=== PATIENT | male | born 1985 | race Caucasian/White ===

== ENCOUNTER 2016-10-23 21:20 | Day surgery (SDC) | payer OTHER ==
[~2016-10-23] VITALS: Ht 175.3 cm; Wt 124.3 kg
[~2016-10-23 21:20] MED LIST: ALBU8.5H2 IH; AZTH250C PO; HYDR-3720 PO; PENI250T4 PO
--- OUTSIDE RECORDS SUMMARY | 2016-10-23 21:27 | XMS REPORT | Continuity of Care Document ---
Author Author [facility] Organization [facility] Address Unknown Phone Unavailable Allergies Active Description Code Type Severity Reaction Onset Reported/Identified Relationship to Patient Clinical Status Yes No Known Drug Allergies [id number] Drug Allergy Unknown N/ A 01/17/2013 Medications Problems Date Dx Coded Attending Type Code Diagnosis Diagnosed By 01/17/2013 MICKEY LOOMIS MD Ot 719.41 JOINT PAIN-SHLDER 01/17/2013 MICKEY LOOMIS MD Ot 959.2 SHLDR/UPPER ARM INJ NOS 01/17/2013 MICKEY LOOMIS MD Ot E000.8 OTHER EXTERNAL CAUSE STATUS 01/17/2013 MICKEY LOOMIS MD Ot E849.4 ACCID IN RECREATION AREA 01/17/2013 MICKEY LOOMIS MD Ot E928.9 ACCIDENT NOS 03/13/2013 JOHN HUMPHREY DO Ot 522.5 PERIAPICAL ABSCESS 03/13/2013 JOHN HUMPHREY DO Ot 525.9 DENTAL DISORDER NOS 07/07/2013 JASON INTERIANO, WHIT Pacheco Ot 490 BRONCHITIS NOS 07/07/2013 JASON INTERIANO, WHIT Pacheco Ot 786.2 COUGH Procedures Results Encounters ACCT No. Visit Date/Time Discharge Status Pt. Type Provider Facility Loc./Unit Complaint [id number] 07/07/2013 09:55:00 2012 11:40:00 DIS Emergency WHIT GOMEZ MD [facility] ER CONGESTION COUGHING [id number] 03/13/2013 16:32:00 2012 18:13:00 DIS Emergency JOHN HUMPHREY DO [facility] ER R CHEEK PAIN [id number] 01/17/2013 19:57:00 2012 22:43:00 DIS Emergency MICKEY LOOMIS MD [facility] ER R SHOULDER POPING OUT OF PLACE [id number] 10/23/2016 21:23:00 ACT Emergency EBONIE INTERIANO, MICKEY Butcher [facility] AB PAIN
--- NOTE | 2016-10-23 23:07 | ED Abdominal Pain ---
General Chief Complaint: Abdominal/GI Problems Stated Complaint: AB PAIN Nursing Triage Note: onset of right sided abdominal pain beginning at 1700 tonight. Sepsis Screen: No Definite Risk Source of Information: Patient Exam Limitations: No Limitations History of Present Illness Time Seen By Provider: 23:07 Initial Comments 31-year-old male patient presents to the emergency department with complaints of right-sided abdominal pain beginning at 1700 tonight. Patient reports previous history of symptoms over the last month. Worse with eating especially fatty foods. Does report nausea and vomiting when pain begins. Patient reports eating a meatball sub approx. 30 min prior to symptoms. Timing/Duration: Constant (constant pain since 1700 tonight.), Other (1700 tonight.) Severity/Quality: Aching, Cramping, Sharp Location: Other (right-sided abdominal pain) Radiation: No Radiation Activities at Onset: Other (30 minutes after eating a meatball sub) Modifying Factors: Worsens With Eating, Worsens With Movement, Worsens With Palpation Allergies and Home Medications Allergies Coded Allergies: No Known Drug Allergies (Unverified , 01/17/13) Home Medications Albuterol 8.5 Gm Hfa.aer.ad #1 2 PUFF IH Q4H PRN PRN WHEEZING 2 PUFFS Prescribed by: WHIT GARZON on 07/07/13 1137 Azithromycin 250 Mg Tablet 5Days 1 TAB PO DAILY Take 500 mg day #1, then 250 mg daily on days #2-5 Prescribed by: WHIT GARZON on 07/07/13 1137 Review of Systems Constitutional: No chills, No fever, No malaise Respiratory: No Symptoms Reported Cardiovascular: No Symptoms Reported Gastrointestinal: See HPIDenies Abdomen Distended, Abdominal PainDenies Blood Streaked Stools, Denies Constipated, Denies Diarrhea, NauseaDenies Rectal Bleeding, Vomiting Genitourinary: Denies Burning, Denies Discharge, Denies Frequency, Denies Flank Pain, Denies Hematuria, Denies Pain Musculoskeletal: No back pain Skin: no symptoms reported Psychiatric/Neurological: No Symptoms Reported All Other Systems Reviewed Negative Unless Noted: Yes (Negative excepted noted.) Past Ekdallh-Gozxxi-Auhnii Hx Patient Social History Recent Foreign Travel: No Contact w/Someone Who Travel: No Recent Infectious Disease Expo: No Surgeries HX Surgeries: No Respiratory Hx Respiratory Disorders: Yes Respiratory Disorders: Pneumonia Cardiovascular Hx Cardiac Disorders: No Neurological Hx Neurological Disorders: No Genitourinary Hx Genitourinary Disorders: No Gastrointestinal Hx Gastrointestinal Disorders: No Musculoskeletal Hx Musculoskeletal Disorders: No Endocrine Hx Endocrine Disorders: No HEENT HX ENT Disorders: No Cancer Hx Cancer: No Psychosocial Hx Psychiatric Problems: No Integumentary HX Skin/Integumentary Disorder: No Blood Transfusions Hx Blood Disorders: No Reviewed Nursing Assessment Reviewed/Agree w Nursing PMH: Yes Family Medical History Significant Family History: COPD Physical Exam Vital Signs VS - Last 72 Hours, by Label 10/23/16 22:22 Temp 97.2 Pulse 69 Resp 24 B/P 124/70 Capillary Refill : Less Than 3 Seconds General Appearance: WD/WN no apparent distress HEENT: PERRL/EOMI pharynx normal Respiratory: lungs clear normal breath sounds no respiratory distress Cardiovascular: regular rate, rhythm no murmur Gastrointestinal: normal bowel sounds soft no organomegalyNo distended, guarding (right upper quadrant)No rebound, tenderness (right mid abdomen and right upper quadrant. Positive May sign.) Extremities: normal capillary refill Back: normal inspection no CVA tenderness Neurologic/Psychiatric: alert oriented x 3 other (anxious) Skin: normal color warm/dry Progress/Results/Core Measures Results/Orders Lab Results Laboratory Tests Test 10/23/16 23:30 Range/Units Alanine Aminotransferase (ALT/SGPT) 30 0-55 U/L Albumin 4.2 3.2-4.5 G/DL Alkaline Phosphatase 82 40-136 U/L Anion Gap 11 5-14 MMOL/L Aspartate Amino Transf (AST/SGOT) 24 5-34 U/L BUN/Creatinine Ratio 9 Band Neutrophils 4 % Basophils # (Auto) 0.0 0.0-0.1 10^3/uL Basophils % (Manual) 0 % Basophils (%) (Auto) 0 0-10 % Blood Morphology Comment NORMAL Blood Urea Nitrogen 9 7-18 MG/DL Calcium Level 9.0 8.5-10.1 MG/DL Carbon Dioxide Level 24 21-32 MMOL/L Chloride Level 103 98-107 MMOL/L Creatinine 1.01 0.60-1.30 MG/DL Eosinophils # (Auto) 0.0 0.0-0.3 10^3/uL Eosinophils % (Manual) 0 % Eosinophils (%) (Auto) 0 0-10 % Estimat Glomerular Filtration Rate > 60 Glucose Level 122 H 70-105 MG/DL Hematocrit 44 40-54 % Hemoglobin 15.1 13.3-17.7 G/DL Lipase 24 8-78 U/L Lymphocytes # (Auto) 2.1 1.0-4.0 X 10^3 Lymphocytes % (Manual) 11 % Lymphocytes (%) (Auto) 9 L 12-44 % Mean Corpuscular Hemoglobin 29 25-34 PG Mean Corpuscular Hemoglobin Concent 35 32-36 G/DL Mean Corpuscular Volume 82 80-99 FL Mean Platelet Volume 10.7 H 7.4-10.4 FL Monocytes # (Auto) 0.8 0.0-1.0 X 10^3 Monocytes % (Manual) 2 % Monocytes (%) (Auto) 4 0-12 % Neutrophils # (Auto) 20.1 H 1.8-7.8 X 10^3 Neutrophils % (Manual) 77 % Neutrophils (%) (Auto) 87 H 42-75 % Platelet Count 336 130-400 10^3/uL Potassium Level 3.6 3.6-5.0 MMOL/L Reactive Lymphocytes 6 % Red Blood Count 5.29 4.35-5.85 10^6/uL Red Cell Distribution Width 12.2 10.0-14.5 % Sodium Level 138 135-145 MMOL/L Total Bilirubin 0.4 0.1-1.0 MG/DL Total Protein 7.3 6.4-8.2 G/DL White Blood Count 23.0 H 4.3-11.0 10^3/uL My Orders Orders-JASWINDER ARRIAGA Saline Lock/Iv-Start (10/23/16 23:12) Cbc With Automated Diff (10/23/16 23:12) Comprehensive Metabolic Panel (10/23/16 23:12) Lipase (10/23/16 23:12) Ua Culture If Indicated (10/23/16 23:12) Fentanyl Injection (Sublimaze Injection (10/23/16 23:12) Ondansetron Injection (Zofran Injectio (10/23/16 23:15) Ns Iv 1000 Ml (Sodium Chloride 0.9%) (10/23/16 23:12) Ct Abdomen/Pelvis W (10/23/16 23:12) Manual Differential (10/23/16 23:30) Iohexol Injection (Omnipaque 350 Mg/Ml 1 (10/24/16 00:00) Ns (Ivpb) (Sodium Chloride 0.9% Ivpb Bag (10/24/16 00:00) Morphine Injection (Morphine Injection (10/24/16 00:05) Hydromorphone Injection (Dilaudid Inject (10/24/16 01:04) Hydromorphone Injection (Dilaudid Inject (10/24/16 01:05) Medications Given in ED Current Medications Medications Dose Ordered Sig/Silvestre Route Start Time Stop Time Status Last Admin Dose Admin Iohexol 100 ml ONCE ONCE IV 10/24/16 00:00 10/24/16 00:01 DC 10/23/16 23:56 100 ML Ondansetron HCl 4 mg 4 mg ONCE ONCE IVP 10/23/16 23:15 10/23/16 23:16 DC 10/23/16 23:33 4 MG Sodium Chloride 100 ml ONCE ONCE IV 10/24/16 00:00 10/24/16 00:01 DC 10/23/16 23:56 80 ML Sodium Chloride 1,000 ml @ 0 mls/hr Q0M ONCE IV 10/23/16 23:12 10/23/16 23:13 DC 10/23/16 23:37 0 MLS/HR Vital Signs/I&O Vital Sign - Last 12Hours 10/23/16 22:22 Temp 97.2 Pulse 69 Resp 24 B/P 124/70 Blood Pressure Mean: 88 Diagnostic Imaging Diagonstic Imaging: CT Plain Films/CT/US/NM/MRI: abdomen, pelvis Comments Cholelithiasis without CT evidence of acute cholecystitis. Appendix is unremarkable. Reviewed: Other (statrad report reviewed by me) Departure Communication Time/Spoke to Admitting Phy: 00:[address] Roberson excepts patient to his surgery service for IV antibiotics, IV fluids , pain control, and cholecystectomy. Progress Notes Laboratory and diagnostic findings discussed with the patient. Patient was given 100 g of fentanyl, 10 mg of morphine with minimal improvement in abdominal pain. Patient continues to rate pain as a 8-9/10. Plan for admission discussed with the patient for pain control, IV fluids, and lap cholecystectomy in a.m. by Dr. Roberson. Patient voices understanding and agrees with the treatment plan. Patient given 1 mg Dilaudid IV in the emergency department. Patient case discussed with Dr. Haynes, he agrees with the plan of care. Impression Impression: Primary Impression: Intractable abdominal pain Additional Impressions: Leukocytosis Qualified Code: D72.829 - Elevated white blood cell count, unspecified Cholelithiasis Qualified Code: K80.20 - Calculus of gallbladder without cholecystitis without obstruction Disposition: ADMITTED INPATIENT Condition: Stable Decision to Admit Reason: Admit from ER (General) Decision to Admit/Date: Oct 24, 2016 Time/Decision to Admit Time: 00:40 Departure-Patient Inst. Referrals: NO,LOCAL PHYSICIAN (PCP/Family) Primary Care Physician JASWINDER ARRIAGA Oct 23, 2016 23:07
[2016-10-23] MEDS ORDERED: NS IV 1000 ML 1,000 ML IV ONE (23:12)
[2016-10-23] MEDS ORDERED: fentaNYL INJECTION 100 MCG/2 ML AMP IVP STA (23:12)
[2016-10-23] MEDS ORDERED: ONDANSETRON 4 MG/2 ML (SDV) Z0FRAN IVP ONE (23:15)
[2016-10-23 23:47] LABS: BASOPHILS % (AUTO) 0 % (0-10); EOSINOPHILS % (AUTO) 0 % (0-10); LYMPHOCYTES # (AUTO) 2.1 X 10^3 (1.0-4.0); LYMPHOCYTES % (AUTO) 9 % (12-44); MEAN CORPUSCULAR HEMOGLOBIN 29 PG (25-34); MEAN CORPUSCULAR HGB CONC 35 G/DL (32-36); MEAN CORPUSCULAR VOLUME 82 FL (80-99); MEAN PLATELET VOLUME 10.7 FL (7.4-10.4); MONOCYTES # (AUTO) 0.8 X 10^3 (0.0-1.0); MONOCYTES % (AUTO) 4 % (0-12); NEUTROPHILS # (AUTO) 20.1 X 10^3 (1.8-7.8); NEUTROPHILS % (AUTO) 87 % (42-75); PLATELET COUNT 336 10^3/uL (130-400); RED BLOOD COUNT 5.29 10^6/uL (4.35-5.85); RED CELL DISTRIBUTION WIDTH 12.2 % (10.0-14.5)
[2016-10-24] MEDS ORDERED: IOHEXOL 350 MG/ML 100 ML (OMNIPAQUE 350) VIAL IV ONE
[2016-10-24] MEDS ORDERED: NS 100 ML (IVPB) BAG IV ONE
[2016-10-24] MEDS ORDERED: morphine INJ 10 MG/ML 1ML (SYR OR VIAL) IVP STA (00:05)
[2016-10-24 00:06] LABS: BAND NEUTROPHILS 4 %; BASOPHILS % (MANUAL) 0 %; EOSINOPHILS % (MANUAL) 0 %; LYMPHOCYTES % (MANUAL) 11 %; NEUTROPHILS % (MANUAL) 77 %; REACTIVE LYMPHOCYTES 6 %
[2016-10-24 00:08] LABS: ALANINE AMINOTRANSFERASE 30 U/L (0-55); ALBUMIN 4.2 G/DL (3.2-4.5); ANION GAP 11 MMOL/L (5-14); ASPARTATE AMINO TRANSFERASE 24 U/L (5-34); BILIRUBIN,TOTAL 0.4 MG/DL (0.1-1.0); BLOOD UREA NITROGEN 9 MG/DL (7-18); BUN/CREATININE RATIO 9; CARBON DIOXIDE 24 MMOL/L (21-32); CHLORIDE 103 MMOL/L (98-107); CREATININE SERUM 1.01 MG/DL (0.60-1.30); GFR ESTIMATED > 60; GLUCOSE 122 MG/DL (70-105); LIPASE 24 U/L (8-78); POTASSIUM 3.6 MMOL/L (3.6-5.0); SODIUM 138 MMOL/L (135-145); TOTAL PROTEIN 7.3 G/DL (6.4-8.2)
[2016-10-24] MEDS ORDERED: HYDROmorphone (DILAUDID) 2 MG/ML VIAL IVP STA (01:04)
[2016-10-24] MEDS ORDERED: HYDROmorphone (DILAUDID) 2 MG/ML VIAL ONE (01:05)
[2016-10-24] MEDS ORDERED: NS IV 1000 ML 1,000 ML ONE (02:25)
[2016-10-24] MEDS ORDERED: morphine INJ 4 MG/ML 1 ML (VIAL/SYRINGE) ONE ×2 (02:47→15:01)
[2016-10-24] MEDS: morphine INJ 4 MG/ML 1 ML (VIAL/SYRINGE) IV PRN ×3 (02:51→08:22)
[2016-10-24 04:00] VITALS: BP 132/68
[2016-10-24] MEDS ORDERED: CATHETER FLUSH 10 ML SYR IV PRN (04:30)
[2016-10-24] MEDS ORDERED: ONDANSETRON 4 MG/2 ML (SDV) Z0FRAN IV PRN ×2 (04:30→14:45)
[2016-10-24] MEDS ORDERED: fentaNYL INJECTION 100 MCG/2 ML AMP IV PRN (04:30)
[2016-10-24] MEDS ORDERED: PROMETHAZINE INJ 25 MG/ML (PHENERGAN) AMP IV PRN (04:30)
[2016-10-24] MEDS: NS IV 1000 ML 1,000 ML IV SCH ×2 (04:48→11:29)
[2016-10-24] MEDS: CIPROFLOXACIN 400 MG/D5W 200 ML (PRE-MIX) IV SCH ×2 (04:48→15:59)
[2016-10-24 05:52] LABS: BASOPHILS % (AUTO) 0 % (0-10); EOSINOPHILS % (AUTO) 0 % (0-10); LYMPHOCYTES # (AUTO) 2.4 X 10^3 (1.0-4.0); LYMPHOCYTES % (AUTO) 15 % (12-44); MEAN CORPUSCULAR HEMOGLOBIN 29 PG (25-34); MEAN CORPUSCULAR HGB CONC 35 G/DL (32-36); MEAN CORPUSCULAR VOLUME 83 FL (80-99); MEAN PLATELET VOLUME 10.8 FL (7.4-10.4); MONOCYTES # (AUTO) 0.8 X 10^3 (0.0-1.0); MONOCYTES % (AUTO) 5 % (0-12); NEUTROPHILS # (AUTO) 12.4 X 10^3 (1.8-7.8); NEUTROPHILS % (AUTO) 80 % (42-75); PLATELET COUNT 275 10^3/uL (130-400); RED BLOOD COUNT 4.99 10^6/uL (4.35-5.85); RED CELL DISTRIBUTION WIDTH 12.3 % (10.0-14.5); WHITE BLOOD COUNT 15.6 10^3/uL (4.3-11.0)
[2016-10-24] MEDS: metroNIDAZOLE 500 MG/100 ML IVPB (PRE-MIX) IV SCH ×2 (06:00→13:28)
[2016-10-24] MEDS: CATHETER FLUSH 10 ML SYR IV SCH ×2 (06:00→15:51)
[2016-10-24 06:17] LABS: ALANINE AMINOTRANSFERASE 26 U/L (0-55); ALBUMIN 3.7 G/DL (3.2-4.5); ANION GAP 10 MMOL/L (5-14); ASPARTATE AMINO TRANSFERASE 21 U/L (5-34); BILIRUBIN,TOTAL 0.5 MG/DL (0.1-1.0); BLOOD UREA NITROGEN 7 MG/DL (7-18); BUN/CREATININE RATIO 8; CALCIUM 8.3 MG/DL (8.5-10.1); CARBON DIOXIDE 23 MMOL/L (21-32); CHLORIDE 106 MMOL/L (98-107); CREATININE SERUM 0.83 MG/DL (0.60-1.30); GFR ESTIMATED > 60; GLUCOSE 112 MG/DL (70-105); SODIUM 139 MMOL/L (135-145); TOTAL PROTEIN 6.4 G/DL (6.4-8.2)
--- NOTE | 2016-10-24 06:54 | Diagnostic Imaging Report ---
PROCEDURE: CT abdomen and pelvis with contrast. TECHNIQUE: Multiple contiguous axial images were obtained through the abdomen and pelvis after administration of intravenous contrast. INDICATION: Right upper quadrant pain, postprandial worsening in severity recently. Multiple stones within the gallbladder lumen present. The gallbladder is nondistended and showed no obvious wall thickening or pericholecystic edema. The liver, bile ducts, spleen, adrenals, pancreas all normal. There is no hydronephrosis. No bowel obstruction. There is no appendicitis or diverticulitis. No focal inflammatory process. No ascites, abscess, hematoma or other fluid collection. IMPRESSION: Cholelithiasis, otherwise normal. Agree with preliminary. Dictated by: Dictated on workstation # [id number]
[2016-10-24] MEDS ORDERED: FLU TRIvalent (5 YOA+) 2016-17 (AFLURIA) 0.5 ML IM ONE (07:00)
[2016-10-24 07:09] LABS: AMYLASE 22 U/L (25-125); LIPASE 12 U/L (8-78)
[2016-10-24 08:00] VITALS: BP_SYST 125; BP_SYST 97; BP_DIAS 67; BP_DIAS 81
--- NOTE | 2016-10-24 08:23 | Progress Note-Pre Operative ---
Pre-Operative Progress Note H&P Reviewed The H&P was reviewed, patient examined and no changes noted. Date H&P Reviewed: Oct 24, 2016 Time H&P Reviewed: 08:23 Pre-Operative Diagnosis: gallstones with acute cholecystitis CLEO FOX MD Oct 24, 2016 8:23 am
--- NOTE | 2016-10-24 08:23 | History & Physicial ---
History of Present Illness History of Present Illness Reason for visit/HPI 3 months history of right upper quadrant pain radiating around the costal margin to the back, with acute exacerbation over the last [address] has confirmed gallstones with early acute cholecystitis. Date of Admission Oct 24, 2016 at 1:13 am I consulted on this patient on 10/24/16 08:20 Attending Physician Cleo Fox MD Admitting Physician No,Local Physician Consult Allergies and Home Medications Allergies Coded Allergies: No Known Drug Allergies (Unverified , 01/17/13) Home Medications Albuterol 8.5 Gm Hfa.aer.ad #1 2 PUFF IH Q4H PRN PRN WHEEZING 2 PUFFS Prescribed by: WHIT GARZON on 07/07/13 1137 Azithromycin 250 Mg Tablet 5Days 1 TAB PO DAILY Take 500 mg day #1, then 250 mg daily on days #2-5 Prescribed by: WHIT GARZON on 07/07/13 1137 Past Cjgdujo-Becfvh-Ewfhdd Hx Patient Social History Marrital Status: Employed/Student: employed Alcohol Use: Denies Use Recreational Drug Use: No Smoking Status: Current Everyday Smoker Type Used: Cigarettes 2nd Hand Smoke Exposure: No Physical Abuse Screen: No Sexual Abuse: No Recent Foreign Travel: No Contact w/other who traveled: No Recent Hopitalizations: No Recent Infectious Disease Expo: No Immunizations Up To Date Tetanus Booster (TDap): Unknown Seasonal Allergies Seasonal Allergies: No Surgeries HX Surgeries: No Respiratory Hx Respiratory Disorders: Yes Cardiovascular Hx Cardiovascular Disorders: No Neurological Hx Neurological Disorders: No Genitourinary Hx Genitourinary Disorders: No Gastrointestinal Hx Gastrointestinal Disorders: No Musculoskeletal Hx Musculoskeletal Disorders: No Endocrine Hx Endocrine Disorders: No HEENT HX ENT Disorders: No Cancer Hx Cancer: No Psychosocial Hx Psychiatric Problems: No Integumentary HX Skin/Integumentary Disorder: No Blood Transfusions Hx Blood Disorders: No Adverse Reaction to a Blood Tr: No Reviewed Nursing Assessment Reviewed/Agree w Nursing PMH: Yes Family Medical History Significant Family History: COPD Family Hx: FH: congestive heart failure 19 FATHER Constitutional: fever EENTM: no symptoms reported Respiratory: cough Cardiovascular: no symptoms reported Gastrointestinal: RUQ abdominal pain (RUQ) Genitourinary: no symptoms reported Musculoskeletal: no symptoms reported Skin: no symptoms reported Psychiatric/Neurological: No Symptoms Reported Physical Exam Vital Signs Vital Sign - Last 12Hours 10/23/16 10/24/16 10/24/16 22:22 02:05 02:12 Temp 97.2 Pulse 69 Resp 24 B/P 124/70 Pulse Ox 98 O2 Delivery Room Air Capillary Refill : Less Than 3 Seconds General Appearance: Mild Distress HEENT: PERRL/EOMI Neck: Normal Inspection Respiratory: Lungs Clear Cardiovascular: Regular Rate, Rhythm Gastrointestinal: Soft Tenderness Rectal: Deferred Back: Normal Inspection Extremity: Normal Capillary Refill Normal Inspection Neurologic/Psychiatric: Alert Oriented x3 Skin: Warm/Dry Comments mild tenderness over the right upper quadrant. Superficial folliculitis of the abdominal wall. No hernia Assessment/Plan Assessment and Plan gentleman with gallstones and early acute cholecystitis. LFTs normal. Offered cholecystectomy using minimally invasive technique and possible cholangiogram. Expected recovery, complications of postoperative bile leak wound infection etc. discussed. Incentive spirometry will be used preoperatively and continued after surgery. Encouraged to stop smoking Admission Diagnosis gallstones with acute cholecystitis Clinical Quality Measures DVT/VTE Risk/Contraindication: Risk Factor Score Per Nursin RFS Level Per Nursing on Admit: 3=High CLEO FOX MD Oct 24, 2016 8:23 am
[2016-10-24] MEDS ORDERED: metroNIDAZOLE 500MG/100ML IVPB 100 ML IV ONE (08:30)
[2016-10-24] MEDS ORDERED: ceFAZolin 2 GM/50 ML NS 50 ML IV ONE (08:30)
[2016-10-24] MEDS ORDERED: FAMOTIDINE 20MG/2ML IV (PEPCID) IV SCH (09:00)
[2016-10-24] MEDS ORDERED: FAMOTIDINE 20MG/2ML IV (PEPCID) IV ONE (10:30)
[2016-10-24] MEDS ORDERED: RT-ALBUTEROL SULF 2.5 MG/3 ML PRE-MIX VIAL INH ONE (10:30)
[2016-10-24] MEDS ORDERED: BUP/EPI 0.25% 1:200,000 (MARCAINE) 30 ML VIAL ONE (10:57)
[2016-10-24] MEDS ORDERED: ROCURONIUM 50 MG/5 ML (ZEMURON) VIAL IV ONE (11:29)
[2016-10-24] MEDS ORDERED: proPOfol 200 MG/20 ML (DIPRIVAN) VIAL IV ONE (11:29)
[2016-10-24] MEDS ORDERED: MIDAZOLAM 2 MG/2 ML (VERSED) VIAL ONE (11:29)
[2016-10-24] MEDS ORDERED: fentaNYL INJECTION 250 MCG/5 ML AMP ONE (11:29)
[2016-10-24 11:45] VITALS: BP 105/65
[2016-10-24] MEDS: LACTATED RINGERS 1,000 ML IV PRN ×2 (12:10→13:35)
[2016-10-24] MEDS ORDERED: ceFAZolin 1,000 MG (ANCEF) VIAL ONE (12:29)
[2016-10-24] MEDS ORDERED: SEVOFLURANE (ULTANE) 15 ML INHAL SOLN ONE (13:50)
[2016-10-24] MEDS ORDERED: LACTATED RINGERS 2,000 ML IV ONE (13:50)
[2016-10-24] MEDS ORDERED: ONDANSETRON 4 MG/2 ML (SDV) Z0FRAN ONE (13:50)
--- NOTE | 2016-10-24 14:16 | Progress Note-Post Operative ---
Post-Operative Progess Note Pre-Operative Diagnosis gallstones with acute cholecystitis Post-Operative Diagnosis same Post-Op Procedure Note Date of Procedure: Oct 24, 2016 Name of Procedure: rrobotic-assisted cholecystectomy Anesthesia Type Gen. Estimated blood loss (mL): minimal Specimen(s) collected gallbladder CLEO FOX MD Oct 24, 2016 2:16 pm
[2016-10-24] MEDS ORDERED: HYDR-3812 PO (14:17)
--- NOTE | 2016-10-24 14:18 | Discharge Inst-Simple/Standard ---
Discharge Inst-Standard Discharge Medications New, Converted or Re-Newed RX: RX on Chart Patient Instructions/Follow Up Plan of Care/Instructions/FU: incentive spirometry. Dressings off in 48 hours. Follow-up in 2 weeks Activity as Tolerated: Yes Discharge Diet: No Restrictions CLEO FOX MD Oct 24, 2016 2:18 pm
[2016-10-24] MEDS ORDERED: KETOROLAC 30 MG/ML VIAL ONE (14:28)
[2016-10-24] MEDS ORDERED: HYDROmorphone (DILAUDID) 2 MG/ML VIAL IV PRN (14:45)
[2016-10-24] MEDS ORDERED: KETOROLAC 30 MG/ML VIAL IV SCH (14:45)
[2016-10-24] MEDS ORDERED: morphine INJ 10 MG/ML 1ML (SYR OR VIAL) IV PRN (14:45)
[2016-10-24 16:11] VITALS: BP 115/74
--- OUTSIDE RECORDS SUMMARY | 2016-10-25 13:20 | XMS REPORT | Continuity of Care Document ---
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 Name Role Phone NO, LOCAL PHYSICIAN PCP Unavailable Insurance Providers Payer Name Policy Number Subscriber Name Relationship Self Pay Toni Moulton 18 Self / Same As Patient Advance Directives Directive Response Recorded Date/Time Advance Directives No 10/24/16 2:12am Health Care Power of Television Specialist No 10/24/16 2:12am Organ Donor Yes 10/24/16 2:12am Resuscitation Status Full Code 10/24/16 2:12am Chief Complaint and Reason for Visit Chief Complaint INTRACTABLE RUQ PAIN, LEUKOCYTOSIS, CHOLELITHIASIS Reason for Visit Cholelithiasis Intractable abdominal pain Leukocytosis Problems Active Problems Medical Problem Onset Date Status Bronchitis Unknown Acute Cholelithiasis Unknown Acute Intractable abdominal pain Unknown Acute Leukocytosis Unknown Acute Medications Current Home Medications Medication Dose Units Route Directions Days/Qty Instructions Start Date Hydrocodone/Acetaminophen 1 Each 1-2 Tab Oral 4-6HR as needed for Pain 30 10/24/16 Past Home Medications Medication Directions Ordered Status Acetaminophen/Hydrocodone Bitart ([place]) 1 Each Tablet, 0.5 - 1 Each Oral Q 4 - 6 Hrs Prn 03/13/13 Discontinued Penicillin V Potassium 250 Mg Tablet, 500 Mg Oral Four Times Daily 03/13/13 Discontinued Albuterol 8.5 Gm Hfa.aer.ad, 2 Puff Inhalation Every 4HRS as needed for Wheezing 07/07/13 Discontinued Azithromycin 250 Mg Tablet, 1 Tab Oral Daily 07/07/13 Discontinued Social History Social History Problem Response Recorded Date/Time Alcohol Use Denies Use 07/07/2013 10:00am Recreational Drug Use No 07/07/2013 10:00am Recent Foreign Travel No 10/24/2016 2:12am Recent Infectious Disease Exposure No 10/24/2016 2:12am Hospitalization with Isolation Denies 10/24/2016 6:50pm Smoking Status Current Everyday Smoker 10/24/2016 2:12am Type Used Cigarettes 10/24/2016 6:50pm Recent Hopitalizations No 10/24/2016 2:12am Hospitalization with Isolation Denies 10/24/2016 6:50pm Query Response Start Date Stop Date Smoking Status Current Everyday Smoker Hospital Discharge Instructions Patient Instructions Physician Instructions New, Converted or Re-Newed RX: RX on Chart Plan of Care/Instructions/FU: incentive spirometry. Dressings off in 48 hours. Follow-up in 2 weeks Activity as Tolerated: Yes Discharge Diet: No Restrictions Care Plan Patient Instructions:: incentive spirometry. Dressings off in 48 hours. Follow-up in 2 weeks Plan of Care Discharge Date 10/24/16 6:41pm Disposition 01 HOME, SELF-CARE Instructions/Education Provided Cholecystectomy, Laparoscopic Surgery Forms Provided PDI Medical PDI Surgical Prescriptions See Medication Section Referrals CLEO FOX MD (Unspecified) - 11/07/16 Address: [address] [place] [address] Reason(s) for Referral: October AT 2:30 P.M. Additional Instructions/Education SHOWER PAT DRY Care Plan and Goals See Discharge Instructions Section Functional Status Query Response Date Recorded Patient Orientation Person Place Time Situation Eyes Open October 24, 2016 6:50pm Comprehension Ability Understands Concepts October 24, 2016 2:12am Allergies, Adverse Reactions, Alerts No known allergies. Immunizations Name Given Type FLU TRIvalent 5 years - Adult 10/24/16 Administered Vital Signs Acute Vital Signs Vital Response Date/Time Temperature (Fahrenheit) 95.5 degrees F (97.6 - 99.5) 10/24/2016 4:11pm Temperature (Calculated Celsius) 35.27577 degrees C (36.4 - 37.5) 10/24/2016 4:11pm Temperature Source Tympanic 10/24/2016 4:11pm Pulse Rate (adult) 58 bpm (60 - 90) 10/24/2016 4:11pm Respiratory Rate 20 bpm (12 - 24) 10/24/2016 4:11pm O2 Sat by Pulse Oximetry 98 % (88 - 100) 10/24/2016 4:11pm Blood Pressure 115/74 mm Hg 10/24/2016 4:11pm Blood Pressure Mean 88 mm Hg 10/24/2016 4:11pm Pain Numeric Pain Scale 0-No Pain 10/24/2016 4:11pm Height (Feet) 5 feet 10/24/2016 2:12am Height (Inches) 9.00 inches 10/24/2016 2:12am Height (Calculated Centimeters) 175.148764 cm 10/24/2016 2:12am Weight (Pounds) 274 pounds 10/24/2016 2:12am Weight (Ounces) 2.0 oz 10/24/2016 2:12am Weight (Calculated Grams) 168516.01 gm 10/24/2016 2:12am Weight (Calculated Kilograms) 124.605941 kilograms 10/24/2016 2:12am Calculated BMI 40.5 10/24/2016 2:12am Capillary Refill Capillary Refill Less Than 3 Seconds 10/23/2016 10:22pm Results Laboratory Results Test Name Result Units Flags Reference Collection Date/Time Result Date/ Time Comments White Blood Count 15.6 10^3/uL H 4.3-11.0 10/24/2016 5:30am 10/24/2016 5: 53am Red Blood Count 4.99 10^6/uL 4.35-5.85 10/24/2016 5:30am 10/24/2016 5: 53am Hemoglobin 14.5 G/DL 13.3-17.7 10/24/2016 5:30am 10/24/2016 5:53am Hematocrit 41 % 40-54 10/24/2016 5:30am 10/24/2016 5:53am Mean Corpuscular Volume 83 FL 80-99 10/24/2016 5:30am 10/24/2016 5: 53am Mean Corpuscular Hemoglobin 29 PG 25-34 10/24/2016 5:30am 10/24/2016 5: 53am Mean Corpuscular Hemoglobin Concent 35 G/DL 32-36 10/24/2016 5:3001/2017 5:53am Red Cell Distribution Width 12.3 % 10.0-14.5 10/24/2016 5:302016 5:53am Platelet Count 275 10^3/uL 130-400 10/24/2016 5:3010/24/2016 5:53am Mean Platelet Volume 10.8 FL H 7.4-10.4 10/24/2016 5:30am 10/24/2016 5: 53am Neutrophils (%) (Auto) 80 % H 42-75 10/24/2016 5:30am 10/24/2016 5:53am Lymphocytes (%) (Auto) 15 % 12-44 10/24/2016 5:3010/24/2016 5:53am Monocytes (%) (Auto) 5 % 0-12 10/24/2016 5:30am 10/24/2016 5:53am Eosinophils (%) (Auto) 0 % 0-10 10/24/2016 5:30am 10/24/2016 5:53am Basophils (%) (Auto) 0 % 0-10 10/24/2016 5:30am 10/24/2016 5:53am Neutrophils # (Auto) 12.4 X 10^3 H 1.8-7.8 10/24/2016 5:30am 10/24/2016 5 :53am Lymphocytes # (Auto) 2.4 X 10^3 1.0-4.0 10/24/2016 5:3010/24/2016 5: 53am Monocytes # (Auto) 0.8 X 10^3 0.0-1.0 10/24/2016 5:3010/24/2016 5: 53am Eosinophils # (Auto) 0.0 10^3/uL 0.0-0.3 10/24/2016 5:30am 10/24/2016 5 :53am Basophils # (Auto) 0.0 10^3/uL 0.0-0.1 10/24/2016 5:30am 10/24/2016 5: 53am Neutrophils % (Manual) 77 % 10/23/2016 11:30pm 10/24/2016 12:07am Band Neutrophils 4 % 10/23/2016 11:30pm 10/24/2016 12:07am Lymphocytes % (Manual) 11 % 10/23/2016 11:30pm 10/24/2016 12:07am Monocytes % (Manual) 2 % 10/23/2016 11:30pm 10/24/2016 12:07am Eosinophils % (Manual) 0 % 10/23/2016 11:30pm 10/24/2016 12:07am Basophils % (Manual) 0 % 10/23/2016 11:30pm 10/24/2016 12:07am Reactive Lymphocytes 6 % 10/23/2016 11:30pm 10/24/2016 12:07am Blood Morphology Comment NORMAL 10/23/2016 11:30pm 10/24/2016 12: 07am Urine Color YELLOW 10/23/2016 10/24/2016 8:45am Urine Clarity CLEAR 10/23/2016 10/24/2016 8:45am Urine pH 5 5-9 10/23/2016 10/24/2016 8:45am Urine Specific [place] 1.015 * 1.016-1.022 10/23/2016 10/24/2016 8: 45am Urine Protein 1+ * NEGATIVE 10/23/2016 10/24/2016 8:45am Urine Glucose (UA) NEGATIVE NEGATIVE 10/23/2016 10/24/2016 8:45am Urine RBC (Auto) NEGATIVE NEGATIVE 10/23/2016 10/24/2016 8:45am Urine Ketones NEGATIVE NEGATIVE 10/23/2016 10/24/2016 8:45am Urine Nitrite NEGATIVE NEGATIVE 10/23/2016 10/24/2016 8:45am Urine Bilirubin NEGATIVE NEGATIVE 10/23/2016 10/24/2016 8:45am Urine Urobilinogen NORMAL MG/DL NORMAL 10/23/2016 10/24/2016 8:45am Urine Leukocyte Esterase NEGATIVE NEGATIVE 10/23/2016 10/24/2016 8: 45am Urine RBC NONE /HPF 10/23/2016 10/24/2016 8:45am Urine WBC NONE /HPF 10/23/2016 10/24/2016 8:45am Urine Bacteria NEGATIVE /HPF 10/23/2016 10/24/2016 8:45am Urine Squamous Epithelial Cells 5-10 /HPF 10/23/2016 10/24/2016 8: 45am Urine Crystals NONE /LPF 10/23/2016 10/24/2016 8:45am Urine Casts NONE /LPF 10/23/2016 10/24/2016 8:45am Urine Mucus NEGATIVE /LPF 10/23/2016 10/24/2016 8:45am Urine Culture Indicated NO 10/23/2016 10/24/2016 8:45am Sodium Level 139 MMOL/L 135-145 10/24/2016 5:30am 10/24/2016 6:36am Potassium Level 4.0 MMOL/L 3.6-5.0 10/24/2016 5:30am 10/24/2016 6:36am Chloride Level 106 MMOL/L 98-107 10/24/2016 5:30am 10/24/2016 6:36am Carbon Dioxide Level 23 MMOL/L 21-32 10/24/2016 5:30am 10/24/2016 6: 36am Anion Gap 10 MMOL/L 5-14 10/24/2016 5:30am 10/24/2016 6:36am Blood Urea Nitrogen 7 MG/DL 7-18 10/24/2016 5:30am 10/24/2016 6:36am Creatinine 0.83 MG/DL 0.60-1.30 10/24/2016 5:30am 10/24/2016 6:36am BUN/Creatinine Ratio 8 10/24/2016 5:30am 10/24/2016 6:36am Estimat Glomerular Filtration Rate > 60 10/24/2016 5:30am 2016 6:36am GFR INTERPRETIVE DATA UNITS FOR ESTIMATED GFR (eGFR): mL/min/1.73 M2 REFERENCE RANGE FOR ESTIMATED GFR (eGFR) eGFR NORMAL eGFR >60 MODERATELY DECREASED eGFR 30-59 SEVERLY DECREASED eGFR 15-29 KIDNEY FAILURE <15 (OR DIALYSIS) Glucose Level 112 MG/DL H 70-105 10/24/2016 5:30am 10/24/2016 6:36am Calcium Level 8.3 MG/DL L 8.5-10.1 10/24/2016 5:30am 10/24/2016 6:36am Total Bilirubin 0.5 MG/DL 0.1-1.0 10/24/2016 5:30am 10/24/2016 6:36am Alkaline Phosphatase 72 U/L 40-136 10/24/2016 5:30am 10/24/2016 6:36am Aspartate Amino Transf (AST/SGOT) 21 U/L 5-34 10/24/2016 5:30am 2016 6:36am Alanine Aminotransferase (ALT/SGPT) 26 U/L 0-55 10/24/2016 5:30am 10/24 6:36am Total Protein 6.4 G/DL 6.4-8.2 10/24/2016 5:30am 10/24/2016 6:36am Albumin 3.7 G/DL 3.2-4.5 10/24/2016 5:30am 10/24/2016 6:36am Amylase Level 22 U/L L 25-125 10/24/2016 5:30am 10/24/2016 7:10am Lipase 12 U/L 8-78 10/24/2016 5:30am 10/24/2016 7:10am Procedures Procedure Status Date Provider(s) Robot-assisted laparoscopic cholecystectomy Completed 10/24/16 CLEO FOX MD Encounters Encounter Location Arrival/Admit Date Discharge/Depart Date Attending Provider Discharged Inpatient (obs) [facility] 10/24/16 1:13am 6:41pm CLEO FOX MD Recent Diagnosis Cholelithiasis Intractable abdominal pain Leukocytosis
--- OUTSIDE RECORDS SUMMARY | 2016-10-25 13:20 | XMS REPORT | Continuity of Care Document ---
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 [...] - 99.5) 10/24/2016 4:11pm Temperature (Calculated Celsius) 35.02596 degrees C (36.4 - 37.5) 10/24/2016 4:11pm [...] 9.00 inches 10/24/2016 2:12am Height (Calculated Centimeters) 175.157752 cm 10/24/2016 2:12am Weight (Pounds) 274 pounds 10/24/2016 2:12am Weight (Ounces) 2.0 oz 10/24/2016 2:12am Weight (Calculated Grams) 547174.01 gm 10/24/2016 2:12am Weight (Calculated Kilograms) 124.848822 kilograms 10/24/2016 2:12am Calculated BMI 40.5 10/24/2016 [...] 5 5-9 10/23/2016 10/24/2016 8:45am Urine Specific [place] 1.015 * 1.016-1.022 10/23/2016 10/24/2016 8: 45am [...] Date Attending Provider Discharged Inpatient (obs) [facility] 10/24/16 1:13am 6:41pm CLEO FOX MD Recent Diagnosis Cholelithiasis Intractable abdominal pain Leukocytosis
--- NOTE | 2016-10-25 13:25 | OPERATIVE REPORT ---
PROCEDURE PHYSICIAN: CLEO FOX DATE OF PROCEDURE: 10/24/2016 PREOPERATIVE DIAGNOSIS: 1. Gallstones. 2. Cholecystitis. POSTOPERATIVE DIAGNOSIS: 1. Gallstones. 2. Cholecystitis. OPERATION: Robotic assisted cholecystectomy. SURGEON: Da ANESTHESIA: General anesthesia. BLOOD LOSS: Minimal. FLUIDS: 1500 mL crystalloids. TYPE OF WOUND: Type III (contaminate wound). INDICATION FOR THE PROCEDURE: This gentleman presented with gallstones and early acute cholecystitis. He was offered cholecystectomy using minimally invasive technique with robotic assistance, after a brief period of intravenous antibiotics. Informed consent was obtained after reviewing the operative details and complications of wound infection, bile leak and the requirement for postoperative ERCP, should stones be found in the common bile duct. DESCRIPTION OF PROCEDURE: He was placed supine on the operative table and general anesthesia induced using an endotracheal tube. 2 grams of Ancef and 500 mg of Flagyl were administered intravenously as prophylaxis against wound infection. Sequential compression devices were placed around his legs, to minimize the risk of venous thrombosis. Abdomen was prepared and draped in the usual sterile manner. A supraumbilical incision was made and the linea alba incised vertically. A Flannery cannula was placed and carbon dioxide insufflated, to an intra-abdominal pressure of 15 mmHg. Intraabdominal pressure was maintained at 17 mmHg (obesity) using carbon dioxide insufflation. A 12 mm trocar was placed and anatomy visualized using the high definition, 3 dimensional laparoscope associated with da PixelPlay system. Under direct view, I placed an 8 mm cannula over each side of the abdomen, followed by a 5 mm trocar over the left upper quadrant to facilitate retraction of the fundus of the gallbladder. The patient was then turned into steep reverse Trendelenburg position and the robotic system docked in place. Laparoscopic survey confirmed an acutely inflamed gallbladder with severe edema. The fundus was retracted cephalad and infundibulum grasped with Cadiere forceps. Inflamed tissue around the neck of the gallbladder was incised using hook cautery, delineating the cystic duct and artery. Both were divided between locking clips. Cholecystectomy was then completed using the same device. Subhepatic space was irrigated with saline and the gallbladder placed in an Endo Catch bag, to be removed via the supraumbilical trocar site. The fascia over this incision had to be extended laterally to facilitate removal of the large gallbladder. Subsequently, the fascia was closed using number 1 Vicryl, in an interrupted fashion. Subcutaneous tissue over the supraumbilical position was approximated using 3-0 Vicryl. Skin incisions were closed using 4-0 Vicryl, in a subcuticular fashion. 0.25% Marcaine with epinephrine was infiltrated along the incisions, both preemptively and at the conclusion of the operation. He tolerated the procedure well, was extubated in the operating room and taken to the recovery room in a stable condition. [place], sponges, and instruments were correct at the end of the operation. Job ID: [id number] Dictated Date: 10/24/2016 14:16:30 Passenger Attendant Date: 10/25/2016 13:18:19 / una TREJO
== END 2016-10-24 18:41 | disposition home or self-care (01) ==
LOC: EDUNIT# 21:20 → ER 21:23 → SDC 21:24 → 4TH 21:24 → UNDOADMOB 10-24 01:13 → SDC 10-24 18:41 → UNDODISOB 10-24 18:41 → 4TH 10-24 21:24 → SDC 10-24 21:24
PROVIDERS: ATTEND Surgery
DX: K80.12 Calculus of gallbladder with acute and chronic cholecystitis without obstruction (principal); F17.210 Nicotine dependence, cigarettes, uncomplicated
CPT/HCPCS: 36415; 74177; 80053; 81000; 82150; 83690; 85007; 85025; 85027; 87081; 88304; 94640; 94664; 94760; 96374; 96375

== ENCOUNTER 2017-09-16 07:39 | Emergency (ER) | payer SELFPAY ==
[~2017-09-16] VITALS: Ht 182.9 cm; Wt 104.3 kg
[~2017-09-16 07:39] MED LIST changes: +ACHD5005 PO
[2017-09-16] MEDS ORDERED: RT-ALBUTEROL/IPRATROPIUM 3 ML (DUONEB) VIAL INH ONE (08:30)
[2017-09-16] MEDS ORDERED: KETOROLAC 30 MG/ML VIAL IVP ONE (08:30)
--- NOTE | 2017-09-16 08:44 | ED Chest Pain ---
General Chief Complaint: Chest Pain Stated Complaint: FLU, SHARP CP, SOB Nursing Triage Note: pt reports cough/cold flu s/s x 4 days. reports developed worsening cp since yesterday. States CP is worse with inspiration. Nursing Sepsis Screen: No Definite Risk Source: patient Exam Limitations: no limitations History of Present Illness Date Seen by Provider: Sep 16, 2017 Time Seen by Provider: 07:57 Initial Comments Patient presented to the emergency room with primary complaint of chest pain. EKG was obtained by nursing staff at triage. This reports family members have had influenza. He has developed flulike symptoms over the past 2 days including cough, chest pain with cough and breathing, generalized myalgia and fatigue. He took Excedrin, ibuprofen and NyQuil which were not very helpful. He denies any history of cardiopulmonary problems. He has a tightness in his chest. Allergies and Home Medications Allergies Coded Allergies: No Known Drug Allergies (Unverified , 01/17/13) Home Medications Albuterol Sulfate 1 Puff Puff, 1-4 PUFF IH Q4H PRN for SHORTNESS OF BREATH, #1 1 PUFF = 90 MCG Prescribed by: WHIT GARZON on 09/16/17 0921 Hydrocodone Bit/Acetaminophen 1 Each Tablet, 1-2 TAB PO 4-6HR PRN for PAIN, #30 Prescribed by: CLEO FOX on 10/24/16 1417 Oseltamivir Phosphate 75 Mg Cap, 75 MG PO BID, #10 Prescribed by: WHIT GARZON on 09/16/17 0921 Review of Systems Constitutional: see HPI EENTM: No Symptoms Reported Respiratory: See HPI Cardiovascular: No Symptoms Reported Gastrointestinal: No Symptoms Reported Genitourinary: No Symptoms Reported Musculoskeletal: no symptoms reported Skin: no symptoms reported Psychiatric/Neurological: No Symptoms Reported Endocrine: No Symptoms Reported Past Ctcmsky-Ihpxfo-Rmfbmy Hx Patient Social History Alcohol Use: Denies Use Recreational Drug Use: No Smoking Status: Former Smoker Type Used: Cigarettes Former Smoker, Quit: Aug 29, 2016 2nd Hand Smoke Exposure: No Recent Foreign Travel: No Contact w/Someone Who Travel: No Recent Infectious Disease Expo: No Recent Hopitalizations: No Physical Abuse: No Sexual Abuse: No Mistreated: No Fear: No Immunizations Up To Date Tetanus Booster (TDap): Unknown PED Vaccines UTD: No Seasonal Allergies Seasonal Allergies: No Surgeries History of Surgeries: Yes Surgeries: Gallbladder Respiratory History of Respiratory Disorde: No Respiratory Disorders: Pneumonia Cardiovascular History of Cardiac Disorders: No Neurological History of Neurological Disord: No Reproductive System Hx Reproductive Disorders: No Genitourinary History of Genitourinary Disor: No Gastrointestinal History of Gastrointestinal Di: No Musculoskeletal History of Musculoskeletal Dis: No Endocrine History of Endocrine Disorders: No HEENT History of HEENT Disorders: No Cancer History of Cancer: No Psychosocial History of Psychiatric Problem: No Suicide Risk Score: 0 Integumentary History of Skin or Integumenta: No Blood Transfusions History of Blood Disorders: No Adverse Reaction to a Blood Tr: No Family Medical History Significant Family History: Heart Disease, COPD Family Medial History: FH: congestive heart failure 19 FATHER Physical Exam Vital Signs Vital Sign - Last 12Hours 09/16/17 09/16/17 08:06 08:21 Temp 98.0 Pulse 84 Resp 20 B/P (MAP) 107/66 (80) Pulse Ox 95 O2 Delivery Room Air Capillary Refill : Less Than 3 Seconds General Appearance: No Apparent Distress, WD/WN HEENT: PERRL/EOMI, TMs Normal, Normal ENT Inspection, Pharynx Normal Neck: Normal Inspection Respiratory: No Accessory Muscle Use, No Respiratory Distress, Decreased Breath Sounds, Wheezing Cardiovascular: Regular Rate, Rhythm, No Edema, Normal Peripheral Pulses Gastrointestinal: Normal Bowel Sounds, Non Tender, Soft Extremity: Normal Inspection, No Pedal Edema Neurologic/Psychiatric: Alert, Oriented x3, No Motor/Sensory Deficits, Normal Mood/Affect, wildlife photographer II-XII Norm as Tested Skin: Normal Color, Warm/Dry Progress/Results/Core Measures Results/Orders My Orders Orders - WHIT GOMEZ MD Saline Lock/Iv-Start (09/16/17 08:18) Ekg Tracing (09/16/17 08:18) Chest Pa/Lat (2 View) (09/16/17 08:18) Albuterol/Ipra Inhalation Soln (Duoneb I (09/16/17 08:30) Svn Sm Volume Nebulizer Rt-Rfs (09/16/17 08:18) Ketorolac Injection (Toradol Injection) (09/16/17 08:30) Medications Given in ED Vital Signs/I&O Vital Sign - Last 12Hours 1/27/18 09/16/17 09/16/17 09/16/17 08:06 08:21 08:29 09:42 Temp 98.0 Pulse 84 89 Resp 20 20 B/P (MAP) 107/66 (80) Pulse Ox 95 96 97 O2 Delivery Room Air Blood Pressure Mean: 80 Progress Note : Progress Note Chest x-ray and EKG were normal. Patient is presumed to have influenza due to his symptoms and exposures. A DuoNeb treatment helped with the chest tightness. Toradol was given for pain. He is prescribed an inhaler and Tamiflu. ECG Initial ECG Impression Date: Sep 16, 2017 Initial ECG Impression Time: 07:53 Initial ECG Rate: 81 Initial ECG Rhythm: Normal Sinus Initial ECG Intervals: Normal Initial ECG Impression: Normal Comment Normal sinus rhythm with no ST elevation or depression. No abnormal intervals or axis deviation. Diagnostic Imaging Diagonstic Imaging: Xray Plain Films/CT/US/NM/MRI: chest Comments Chest x-ray viewed by me and report reviewed. See report below: NAME: TRAVIS MEAD [facility] REC#: [id number] PT STATUS: REG ER : 1985 PHYSICIAN: WHIT GOMEZ MD ADMIT DATE: 09/16/17/ER Draft Date of Exam:09/16/17 CHEST PA/LAT (2 VIEW) INDICATION: Chest pain COMPARISON: 08/06/2013 FINDINGS: Frontal and lateral views of the chest demonstrate clear lungs bilaterally. The heart is normal. There is no pneumothorax. Osseous structures are normal. IMPRESSION: Negative chest. Dictated on workstation # [id number] Dict: 09/16/17 0859 Trans: 09/16/17 0904 [facility] [id number] Interpreted by: RAFIA VIVAR Departure Impression Impression: Primary Impression: Flu-like symptoms Additional Impressions: Atypical chest pain Acute bronchospasm due to viral infection Disposition: HOME, SELF-CARE Condition: Improved Departure-Patient Inst. Decision time for Depature: 09:05 Referrals: NO,LOCAL PHYSICIAN (PCP/Family) Primary Care Physician Patient Instructions: BRONCHOSPASM-ADULT, Flu Add. Discharge Instructions: Drink plenty of clear liquids. You may take ibuprofen up to 600 mg every 6 hours as needed for pain. Add Tylenol (acetaminophen) up to 1000 mg every 6 hours as needed for additional pain relief. Complete Tamiflu as prescribed. Start it immediately if you choose to take it. Return to care if symptoms worsen. Use your inhaler up to 4 puffs and a four-hour period of time as needed for shortness of breath and chest tightness. All discharge instructions reviewed with patient and/or family. Voiced understanding. Scripts Albuterol Sulfate (PROAIR HFA) 1 Puff Puff 1-4 PUFF IH Q4H Y for SHORTNESS OF BREATH, #1 PUFF 1 PUFF = 90 MCG Prov: WHIT GOMEZ MD 09/16/17 Oseltamivir Phosphate (Tamiflu) 75 Mg Cap 75 MG PO BID, #10 CAP Prov: WHIT GOMEZ MD 09/16/17 Work/School Note: Work Release Form Date Seen in the Emergency Department: Sep 16, 2017 Return to Work: Sep 18, 2017 Restrictions: Return-No Fever (24hrs) WHIT GOMEZ MD Sep 16, 2017 08:44
--- NOTE | 2017-09-16 09:05 | Diagnostic Imaging Report ---
INDICATION: Chest pain COMPARISON: 08/06/2013 FINDINGS: Frontal and lateral views of the chest demonstrate clear lungs bilaterally. The heart is normal. There is no pneumothorax. Osseous structures are normal. IMPRESSION: Negative chest. Dictated by: Dictated on workstation # [id number]
[2017-09-16] MEDS ORDERED: RT-ALBUINH IH (09:21)
[2017-09-16] MEDS ORDERED: OSLT75C PO (09:21)
[2017-09-16 09:42] VITALS: BP 110/63
[2017-09-19] MEDS ORDERED: BENZ-36 PO (11:26)
[2017-09-19] MEDS ORDERED: DOXY100T2 PO (11:26)
== END 2017-09-16 09:42 | disposition home or self-care (01) ==
LOC: EDUNIT# 07:39 → ER 07:41
DX: J11.1 Influenza due to unidentified influenza virus with other respiratory manifestations (principal); R07.89 Other chest pain; J98.01 Acute bronchospasm; B34.9 Viral infection, unspecified; Z87.891 Personal history of nicotine dependence; Z87.01 Personal history of pneumonia (recurrent); Z82.49 Family history of ischemic heart disease and other diseases of the circulatory system
CPT/HCPCS: 71046; 93005; 94640

== ENCOUNTER 2017-09-19 04:23 | Inpatient (IN) | payer SELFPAY ==
[~2017-09-19] VITALS: Ht 172.7 cm; Wt 116.6 kg
[~2017-09-19 04:23] MED LIST changes: +OSLT75C PO; +RT-ALBUINH IH
--- OUTSIDE RECORDS SUMMARY | 2017-09-19 04:30 | XMS REPORT | Continuity of Care Document ---
Author Author [facility] Organization [facility] Address Unknown Phone Unavailable Allergies Active Description Code Type Severity Reaction Onset Reported/Identified Relationship to Patient Clinical Status Yes No Known Drug Allergies [id number] Drug Allergy Unknown N/A 01/17/2013 Medications There is no data. Problems Date Dx Coded Attending Type Code Diagnosis Diagnosed By 01/17/2013 MICKEY LOOMIS MD Ot 719.41 JOINT PAIN-SHLDER 01/17/2013 MICKEY LOOIMS MD Ot 959.2 SHLDR/UPPER ARM INJ NOS [...] JASON INTERIANO, WHIT Pacheco Ot 786.2 COUGH 10/24/2016 CLEO FOX MD Ot F17.210 NICOTINE DEPENDENCE, CIGARETTES, UNCOMPL 10/24/2016 CLEO FOX MD Ot K80.12 CALCULUS OF GB W ACUTE AND CHRONIC INOCENTE 11/09/2016 CLEO FOX MD Ot F17.210 NICOTINE DEPENDENCE, CIGARETTES, UNCOMPL 11/09/2016 CLEO FOX MD Ot K80.12 CALCULUS OF GB W ACUTE AND CHRONIC INOCNETE 11/11/2016 CLEO FOX MD Ot F17.210 NICOTINE DEPENDENCE, CIGARETTES, UNCOMPL 11/11/2016 CLEO FOX MD Ot K80.12 CALCULUS OF GB W ACUTE AND CHRONIC INOCENTE Procedures There is no data. Results Test Result Range Complete urinalysis with reflex to culture - 10/23/16 00:00 Urine color determination YELLOW NRG Urine clarity determination CLEAR NRG Urine pH measurement by test strip 5 5-9 Specific gravity of urine by test strip 1.015 1.016- 1.022 Urine protein assay by test strip, semi-quantitative 1+ NEGATIVE Urine glucose detection by automated test strip NEGATIVE NEGATIVE Erythrocytes detection in urine sediment by light microscopy NEGATIVE NEGATIVE Urine ketones detection by automated test strip NEGATIVE NEGATIVE Urine nitrite detection by test strip NEGATIVE NEGATIVE Urine total bilirubin detection by test strip NEGATIVE NEGATIVE Urine urobilinogen measurement by automated test strip (mass/volume) NORMAL NORMAL Urine leukocyte esterase detection by dipstick NEGATIVE NEGATIVE Automated urine sediment erythrocyte count by microscopy (number/high power field) NONE NRG Automated urine sediment leukocyte count by microscopy (number/high power field ) NONE NRG Bacteria detection in urine sediment by light microscopy NEGATIVE NRG Squamous epithelial cells detection in urine sediment by light microscopy 5-10 NRG Crystals detection in urine sediment by light microscopy NONE NRG Casts detection in urine sediment by light microscopy NONE NRG Mucus detection in urine sediment by light microscopy NEGATIVE NRG Complete urinalysis with reflex to culture NO NRG Complete blood count (CBC) with automated white blood cell (WBC) differential - 10/23/16 23:30 Blood leukocytes automated count (number/volume) 23.0 10*3/uL 4.3-11.0 Blood erythrocytes automated count (number/volume) 5.29 10*6/uL 4.35-5.85 Venous blood hemoglobin measurement (mass/volume) 15.1 g/dL 13.3-17.7 Blood hematocrit (volume fraction) 44 % 40-54 Automated erythrocyte mean corpuscular volume 82 [foz_us] 80-99 Automated erythrocyte mean corpuscular hemoglobin (mass per erythrocyte) 29 pg 25-34 Automated erythrocyte mean corpuscular hemoglobin concentration measurement ( mass/volume) 35 g/dL 32-36 Automated erythrocyte distribution width ratio 12.2 % 10.0-14.5 Automated blood platelet count (count/volume) 336 10*3/uL 130-400 Automated blood platelet mean volume measurement 10.7 [foz_us] 7.4-10.4 Automated blood neutrophils/100 leukocytes 87 % 42-75 Automated blood lymphocytes/100 leukocytes 9 % 12-44 Blood monocytes/100 leukocytes 4 % 0-12 Automated blood eosinophils/100 leukocytes 0 % 0-10 Automated blood basophils/100 leukocytes 0 % 0-10 Blood neutrophils automated count (number/volume) 20.1 10*3 1.8-7.8 Blood lymphocytes automated count (number/volume) 2.1 10*3 1.0-4.0 Blood monocytes automated count (number/volume) 0.8 10*3 0.0-1.0 Automated eosinophil count 0.0 10*3/uL 0.0-0.3 Automated blood basophil count (count/volume) 0.0 10*3/uL 0.0-0.1 Blood manual differential performed detection - 10/23/16 23:30 Blood monocytes/100 leukocytes 2 % NRG Manual blood segmented neutrophils/100 leukocytes 77 % NRG Blood band neutrophils/100 leukocytes 4 % NRG Manual blood lymphocytes/100 leukocytes 11 % NRG Manual eosinophils/100 leukocytes in nose 0 % NRG Manual blood basophils/100 leukocytes 0 % NRG Blood lymphocytes variant/100 leukocytes 6 % NRG Blood erythrocyte morphology finding identification [facility] Comprehensive metabolic panel - 10/23/16 23:30 Serum or plasma sodium measurement (moles/volume) 138 mmol/L 135-145 Serum or plasma potassium measurement (moles/volume) 3.6 mmol/L 3.6-5.0 Serum or plasma chloride measurement (moles/volume) 103 mmol/L 98-107 Carbon dioxide 24 mmol/L 21-32 Serum or plasma anion gap determination (moles/volume) 11 mmol/L 5-14 Serum or plasma urea nitrogen measurement (mass/volume) 9 mg/dL 7-18 Serum or plasma creatinine measurement (mass/volume) 1.01 mg/dL 0.60-1.30 Serum or plasma urea nitrogen/creatinine mass ratio 9 NRG Serum or plasma creatinine measurement with calculation of estimated glomerular filtration rate > NRG Serum or plasma glucose measurement (mass/volume) 122 mg/dL 70-105 Serum or plasma calcium measurement (mass/volume) 9.0 mg/dL 8.5-10.1 Serum or plasma total bilirubin measurement (mass/volume) 0.4 mg/dL 0.1-1.0 Serum or plasma alkaline phosphatase measurement (enzymatic activity/volume) 82 U/L 40-136 Serum or plasma aspartate aminotransferase measurement (enzymatic activity/ volume) 24 U/L 5-34 Serum or plasma alanine aminotransferase measurement (enzymatic activity/volume ) 30 U/L 0-55 Serum or plasma protein measurement (mass/volume) 7.3 g/dL 6.4-8.2 Serum or plasma albumin measurement (mass/volume) 4.2 g/dL 3.2-4.5 Lipase - 10/23/16 23:30 Lipase 24 U/L 8-78 Complete blood count (CBC) with automated white blood cell (WBC) differential - 10/24/16 05:30 Blood leukocytes automated count (number/volume) 15.6 10*3/uL 4.3-11.0 Blood erythrocytes automated count (number/volume) 4.99 10*6/uL 4.35-5.85 Venous blood hemoglobin measurement (mass/volume) 14.5 g/dL 13.3-17.7 Blood hematocrit (volume fraction) 41 % 40-54 Automated erythrocyte mean corpuscular volume 83 [foz_us] 80-99 Automated erythrocyte mean corpuscular hemoglobin (mass per erythrocyte) 29 pg 25-34 Automated erythrocyte mean corpuscular hemoglobin concentration measurement ( mass/volume) 35 g/dL 32-36 Automated erythrocyte distribution width ratio 12.3 % 10.0-14.5 Automated blood platelet count (count/volume) 275 10*3/uL 130-400 Automated blood platelet mean volume measurement 10.8 [foz_us] 7.4-10.4 Automated blood neutrophils/100 leukocytes 80 % 42-75 Automated blood lymphocytes/100 leukocytes 15 % 12-44 Blood monocytes/100 leukocytes 5 % 0-12 Automated blood eosinophils/100 leukocytes 0 % 0-10 Automated blood basophils/100 leukocytes 0 % 0-10 Blood neutrophils automated count (number/volume) 12.4 10*3 1.8-7.8 Blood lymphocytes automated count (number/volume) 2.4 10*3 1.0-4.0 Blood monocytes automated count (number/volume) 0.8 10*3 0.0-1.0 Automated eosinophil count 0.0 10*3/uL 0.0-0.3 Automated blood basophil count (count/volume) 0.0 10*3/uL 0.0-0.1 Comprehensive metabolic panel - 10/24/16 05:30 Serum or plasma sodium measurement (moles/volume) 139 mmol/L 135-145 Serum or plasma potassium measurement (moles/volume) 4.0 mmol/L 3.6-5.0 Serum or plasma chloride measurement (moles/volume) 106 mmol/L 98-107 Carbon dioxide 23 mmol/L 21-32 Serum or plasma anion gap determination (moles/volume) 10 mmol/L 5-14 Serum or plasma urea nitrogen measurement (mass/volume) 7 mg/dL 7-18 Serum or plasma creatinine measurement (mass/volume) 0.83 mg/dL 0.60-1.30 Serum or plasma urea nitrogen/creatinine mass ratio 8 NRG Serum or plasma creatinine measurement with calculation of estimated glomerular filtration rate > NRG Serum or plasma glucose measurement (mass/volume) 112 mg/dL 70-105 Serum or plasma calcium measurement (mass/volume) 8.3 mg/dL 8.5-10.1 Serum or plasma total bilirubin measurement (mass/volume) 0.5 mg/dL 0.1-1.0 Serum or plasma alkaline phosphatase measurement (enzymatic activity/volume) 72 U/L 40-136 Serum or plasma aspartate aminotransferase measurement (enzymatic activity/ volume) 21 U/L 5-34 Serum or plasma alanine aminotransferase measurement (enzymatic activity/volume ) 26 U/L 0-55 Serum or plasma protein measurement (mass/volume) 6.4 g/dL 6.4-8.2 Serum or plasma albumin measurement (mass/volume) 3.7 g/dL 3.2-4.5 Serum or plasma amylase measurement (enzymatic activity/volume) - 10/24/16 05: 30 Serum or plasma amylase measurement (enzymatic activity/volume) 22 U /L 25-125 Lipase - 10/24/16 05:30 Lipase 12 U/L 8-78 Methicillin resistant Staphylococcus aureus (MRSA) screening culture - 08:45 Methicillin resistant Staphylococcus aureus (MRSA) screening culture NEG NRG Encounters ACCT No. Visit Date/Time Discharge Status Pt. Type Provider Facility Loc./Unit Complaint [id number] 09/16/2017 07:41:00 09/16/2017 09:42:00 DIS Emergency JASON INTERIANO, WHIT Pacheco [facility] ER FLU, SHARP CP, SOB [id number] 10/23/2016 21:24:00 10/24/2016 18:41:00 DIS Outpatient DOMINIQUE INTERIANO, CLEO Zimmerman [facility] SDC INTRACTABLE RUQ PAIN , LEUKOCYTOSIS, CHOLELITHIASIS [id number] 07/07/2013 09:55:00 07/07/2013 11:40:00 DIS Emergency JASON INTERIANO, WHIT Pacheco [facility] ER CONGESTION COUGHING [id number] 03/13/2013 16:32:00 03/13/2013 18:13:00 DIS Emergency JOHN HUMPHREY DO [facility] ER R CHEEK PAIN [id number] 01/17/2013 19:57:00 01/17/2013 22:43:00 DIS Emergency EBONIE INTERIANO, MICKEY Butcher [facility] ER R SHOULDER POPING OUT OF PLACE
[2017-09-19] MEDS ORDERED: RT-ALBUTEROL/IPRATROPIUM 3 ML (DUONEB) VIAL INH ONE (05:00)
--- NOTE | 2017-09-19 05:00 | ED Cough/URI ---
General Chief Complaint: Cough/Cold/Flu Symptoms Stated Complaint: SOB Nursing Triage Note: PT REPORTS HE WAS SEEN IN THIS ED ON 09/16/17 FOR FLU LIKE SYMPTOMS. HE REPORTS NOW HE IS HAVING PRODUCTIVE COUGH AND HE IS CONCERNED HE HAS PNEUMONIA. Source: patient History of Present Illness Date Seen by Provider: Sep 19, 2017 Time Seen by Provider: 04:40 Initial Comments PT WAS SEEN HERE 09/16/17 FOR FLU-LIKE SYMPTOMS AND GIVEN RX FOR TAMIFLU AND ALBUTEROL INHALER STATES HE DID NOT GET RX FOR ALBUTEROL INHALER FILLED. PT STATES "I BROKE THE FLU" "BUT NOW THERE'S FLUID IN MY LUNGS AND I CAN'T CATCH MY BREATH" --THINKS HE HAS PNEUMONIA--HAS HAD BEFORE, A FEW YEARS AGO, AND THIS FEELS SIMILAR STATES HE HAS NOT HAD FEVER COUGH IS PRODUCTIVE WITH COLORED SPUTUM AND IS GETTING WORSE STATES HE WAS HAVING CHEST PAIN FROM THE FLU, AND STILL HAS SOME CHEST PAIN WITH BREATHING. STATES HE HAS NOT BEEN ABLE TO SLEEP FOR THE LAST 2 NIGHTS PCP:[facility] Allergies and Home Medications Allergies Coded Allergies: No Known Drug Allergies (Unverified , 01/17/13) Home Medications Albuterol Sulfate 1 Puff Puff, 1-4 PUFF IH Q4H PRN for SHORTNESS OF BREATH, #1 1 PUFF = 90 MCG Prescribed by: WHIT GARZON on 09/16/17 0921 Hydrocodone Bit/Acetaminophen 1 Each Tablet, 1-2 TAB PO 4-6HR PRN for PAIN, #30 Prescribed by: CLEO FOX on 10/24/16 1417 Oseltamivir Phosphate 75 Mg Cap, 75 MG PO BID, #10 Prescribed by: WHIT GARZON on 09/16/17 0921 Constitutional: No chills, No diaphoresis, No fever, malaise, weakness EENTM: see HPI, nose congestion Respiratory: see HPI, cough, phlegm, short of breath, wheezing Cardiovascular: see HPI, chest pain Gastrointestinal: loss of appetite Genitourinary: no symptoms reported Musculoskeletal: no symptoms reported Skin: no symptoms reported Psychiatric/Neurological: No Symptoms Reported Hematologic/Lymphatic: No Symptoms Reported Immunological/Allergic: no symptoms reported Past Djuevrk-Xirvnq-Xckhik Hx Patient Social History Alcohol Use: Denies Use Recreational Drug Use: No Smoking Status: Former Smoker (1/2 PPD, NOW "VAPES" ) Type Used: Cigarettes, Electronic/Vapor Former Smoker, Quit: Aug 29, 2016 2nd Hand Smoke Exposure: No Recent Foreign Travel: No Contact w/Someone Who Travel: No Recent Infectious Disease Expo: No Recent Hopitalizations: No Immunizations Up To Date Tetanus Booster (TDap): Unknown PED Vaccines UTD: No Seasonal Allergies Seasonal Allergies: No Surgeries History of Surgeries: Yes Surgeries: Gallbladder Respiratory History of Respiratory Disorde: Yes Respiratory Disorders: Pneumonia Cardiovascular History of Cardiac Disorders: No Neurological History of Neurological Disord: No Reproductive System Hx Reproductive Disorders: No Genitourinary History of Genitourinary Disor: No Gastrointestinal History of Gastrointestinal Di: No Musculoskeletal History of Musculoskeletal Dis: No Endocrine History of Endocrine Disorders: No HEENT History of HEENT Disorders: No Cancer History of Cancer: No Psychosocial History of Psychiatric Problem: No Integumentary History of Skin or Integumenta: No Blood Transfusions History of Blood Disorders: No Adverse Reaction to a Blood Tr: No Family Medical History Significant Family History: Heart Disease, COPD Family Medial History: FH: congestive heart failure 19 FATHER Physical Exam Vital Signs Vital Sign - Last 12Hours 09/19/17 04:44 Temp 98.6 Pulse 85 Resp 16 B/P (MAP) 122/70 (87) Pulse Ox 97 O2 Delivery Room Air Capillary Refill : Less Than 3 Seconds General Appearance: WD/WN, no apparent distress HEENT: PERRL/EOMI, other (NASAL MUCOSAL EDEMA) Neck: non-tender, full range of motion, supple, normal inspection Respiratory: no respiratory distress, no accessory muscle use, rales, rhonchi, wheezing, expiration, other (DIFFUSE/BILATERAL RALES/RHONCHI/EXPIRATORY WHEEZING ) Cardiovascular: regular rate, rhythm, no murmur Gastrointestinal: soft Extremities: normal inspection, no pedal edema Neurologic/Psychiatric: pharmacist assistant II-XII nml as tested, no motor/sensory deficits, alert, normal mood/affect, oriented x 3 Skin: normal color, warm/dry Focused Exam Evaluation Lactate Level Laboratory Tests 09/19/17 05:45: Lactic Acid Level 1.53 Lactic Acid Level Laboratory Tests Test 09/19/17 05:45 Lactic Acid Level 1.53 MMOL/L (0.50-2.00) Progress/Results/Core Measures Suspected Sepsis Recent Fever Within 48 Hours: No Infection Criteria Present: None New/Unexplained Altered Menta: No Sepsis Screen: No Definite Risk Sepsis Diagnosis: SIRS Temperature:98.6 Pulse: 85 Respiratory Rate: 16 Laboratory Tests 09/19/17 05:45: White Blood Count 22.6H Blood Pressure 122 /70 Mean: 87 Laboratory Tests 09/19/17 05:45: Lactic Acid Level 1.53 Laboratory Tests 09/19/17 05:45: Creatinine 0.94, Platelet Count 324, Total Bilirubin 0.9 Results/Orders Lab Results Laboratory Tests Test 09/19/17 05:45 Range/Units White Blood Count 22.6 H 4.3-11.0 10^3/uL Red Blood Count 4.39 4.35-5.85 10^6/uL Hemoglobin 12.5 L 13.3-17.7 G/DL Hematocrit 36 L 40-54 % Mean Corpuscular Volume 82 80-99 FL Mean Corpuscular Hemoglobin 29 25-34 PG Mean Corpuscular Hemoglobin Concent 35 32-36 G/DL Red Cell Distribution Width 12.9 10.0-14.5 % Platelet Count 324 130-400 10^3/uL Mean Platelet Volume 10.1 7.4-10.4 FL Neutrophils (%) (Auto) 86 H 42-75 % Lymphocytes (%) (Auto) 6 L 12-44 % Monocytes (%) (Auto) 8 0-12 % Eosinophils (%) (Auto) 0 0-10 % Basophils (%) (Auto) 0 0-10 % Neutrophils # (Auto) 19.4 H 1.8-7.8 X 10^3 Lymphocytes # (Auto) 1.4 1.0-4.0 X 10^3 Monocytes # (Auto) 1.7 H 0.0-1.0 X 10^3 Eosinophils # (Auto) 0.1 0.0-0.3 10^3/uL Basophils # (Auto) 0.1 0.0-0.1 10^3/uL Neutrophils % (Manual) 82 % Lymphocytes % (Manual) 9 % Monocytes % (Manual) 3 % Band Neutrophils 6 % Blood Morphology Comment NORMAL Sodium Level 134 L 135-145 MMOL/L Potassium Level 3.1 L 3.6-5.0 MMOL/L Chloride Level 93 L 98-107 MMOL/L Carbon Dioxide Level 28 21-32 MMOL/L Anion Gap 13 5-14 MMOL/L Blood Urea Nitrogen 6 L 7-18 MG/DL Creatinine 0.94 0.60-1.30 MG/DL Estimat Glomerular Filtration Rate > 60 BUN/Creatinine Ratio 6 Glucose Level 126 H 70-105 MG/DL Lactic Acid Level 1.53 0.50-2.00 MMOL/L Calcium Level 9.0 8.5-10.1 MG/DL Total Bilirubin 0.9 0.1-1.0 MG/DL Aspartate Amino Transf (AST/SGOT) 16 5-34 U/L Alanine Aminotransferase (ALT/SGPT) 22 0-55 U/L Alkaline Phosphatase 91 40-136 U/L Total Protein 7.4 6.4-8.2 GM/DL Albumin 3.3 3.2-4.5 GM/DL My Orders Orders - VANDANA GARCIA DO Chest Pa/Lat (2 View) (09/19/17 04:40) Albuterol/Ipra Inhalation Soln (Duoneb I (09/19/17 05:00) Rt Request For Service (09/19/17 04:50) Svn Sm Volume Nebulizer Rt-Rfs (09/19/17 04:50) Saline Lock/Iv-Start (09/19/17 05:46) Cbc With Automated Diff (09/19/17 05:46) Comprehensive Metabolic Panel (09/19/17 05:46) Lactic Acid Analyzer (09/19/17 05:46) Blood Culture (09/19/17 05:46) Ceftriaxone Injection (Rocephin Injectio (09/19/17 06:00) Methylprednisolone Sod Succ (Solu-Medrol (09/19/17 05:46) Manual Differential (09/19/17 05:45) Medications Given in ED Current Medications Medications Dose Ordered Sig/Silvestre Route Start Time Stop Time Status Last Admin Dose Admin Albuterol/ Ipratropium 3 ml ONCE ONCE INH 09/19/17 05:00 09/19/17 05:01 DC 09/19/17 04:59 3 ML Ceftriaxone Sodium 1000 mg/ Sodium Chloride 50 ml @ 100 mls/hr ONCE ONCE IV 09/19/17 06:00 09/19/17 06:29 DC 09/19/17 06:27 100 MLS/HR Vital Signs/I&O Vital Sign - Last 12Hours 09/19/17 09/19/17 04:44 05:00 Temp 98.6 Pulse 85 Resp 16 B/P (MAP) 122/70 (87) Pulse Ox 97 94 O2 Delivery Room Air Room Air Capillary Refill : Less Than 3 Seconds Blood Pressure Mean: 87 Progress Note : Progress Note GIVEN DUO NEB TREATMENT, INCREASED AERATION , DECREASED WHEEZING /RALES/ RHONCHI. PT STATES HE FEELS MUCH BETTER AFTER TREATMENT. AND IS ABLE TO LAY DOWN AND REST WITHOUT HAVING DIFFICULTY BREATHING Diagnostic Imaging Comments CXR--RIGHT PERIHILAR INFILTRATE, PENDING RADIOLOGIST REVIEW Reviewed: Reviewed by Me Departure Communication (Admissions) Time/Spoke to Admitting Phy: 06:[address] SMITH, ACCEPTS PT FOR ADMIT. Impression Impression: Primary Impression: RIGHT PERIHILAR PNEUMONIA Disposition: ADMITTED INPATIENT Condition: Improved Admissions Decision to Admit Reason: Admit from ER (General) Decision to Admit/Date: Sep 19, 2017 Time/Decision to Admit Time: 06:25 Departure-Patient Inst. Referrals: [facility] DO Sep 19, 2017 05:00
[2017-09-19] MEDS ORDERED: methylPREDNISolone 125 MG (Solu-MEDROL) VIAL IV STA (05:46)
[2017-09-19 05:58] LABS: BASOPHILS # (AUTO) 0.1 10^3/uL (0.0-0.1); BASOPHILS % (AUTO) 0 % (0-10); EOSINOPHILS # (AUTO) 0.1 10^3/uL (0.0-0.3); EOSINOPHILS % (AUTO) 0 % (0-10); HEMATOCRIT 36 % (40-54); HEMOGLOBIN 12.5 G/DL (13.3-17.7); LYMPHOCYTES # (AUTO) 1.4 X 10^3 (1.0-4.0); LYMPHOCYTES % (AUTO) 6 % (12-44); MEAN CORPUSCULAR HEMOGLOBIN 29 PG (25-34); MEAN CORPUSCULAR HGB CONC 35 G/DL (32-36); MEAN CORPUSCULAR VOLUME 82 FL (80-99); MEAN PLATELET VOLUME 10.1 FL (7.4-10.4); MONOCYTES # (AUTO) 1.7 X 10^3 (0.0-1.0); MONOCYTES % (AUTO) 8 % (0-12); NEUTROPHILS # (AUTO) 19.4 X 10^3 (1.8-7.8); NEUTROPHILS % (AUTO) 86 % (42-75); PLATELET COUNT 324 10^3/uL (130-400); RED BLOOD COUNT 4.39 10^6/uL (4.35-5.85); RED CELL DISTRIBUTION WIDTH 12.9 % (10.0-14.5); WHITE BLOOD COUNT 22.6 10^3/uL (4.3-11.0)
[2017-09-19] MEDS ORDERED: cefTRIAXone INJECTION 1,000 MG in NS (IVPB) 50 ML IV ONE (06:00)
[2017-09-19 06:19] LABS: ALANINE AMINOTRANSFERASE 22 U/L (0-55); ALBUMIN 3.3 GM/DL (3.2-4.5); ALKALINE PHOSPHATASE 91 U/L (40-136); BAND NEUTROPHILS 6 %; BILIRUBIN,TOTAL 0.9 MG/DL (0.1-1.0); BUN/CREATININE RATIO 6; CARBON DIOXIDE 28 MMOL/L (21-32); CHLORIDE 93 MMOL/L (98-107); CREATININE SERUM 0.94 MG/DL (0.60-1.30); GFR ESTIMATED > 60; GLUCOSE 126 MG/DL (70-105); LYMPHOCYTES % (MANUAL) 9 %; MONOCYTES % (MANUAL) 3 %; NEUTROPHILS % (MANUAL) 82 %; POTASSIUM 3.1 MMOL/L (3.6-5.0); RBC MORPH NORMAL; SODIUM 134 MMOL/L (135-145); TOTAL PROTEIN 7.4 GM/DL (6.4-8.2)
--- OUTSIDE RECORDS SUMMARY | 2017-09-19 06:44 | XMS REPORT | Continuity of Care Document ---
Author Author [facility] Organization [facility] Address Unknown Phone Unavailable Allergies Active Description Code Type Severity Reaction Onset Reported/Identified Relationship to Patient Clinical Status Yes No Known Drug Allergies [id number] Drug Allergy Unknown N/A 01/17/2013 Medications There [...] OF GB W ACUTE AND CHRONIC INOCENTE 11/11/2016 CLEO FOX MD Ot F17.210 NICOTINE [...] NRG Blood erythrocyte morphology finding identification NORMAL [facility] Comprehensive metabolic panel - 10/23/16 23:30 Serum [...] resistant Staphylococcus aureus (MRSA) screening culture NEG [facility] Blood lactic acid measurement (moles/volume) - 09/19/17 05:45 Blood lactic acid measurement (moles/volume) 1.53 mmol/L 0.50-2.00 Complete blood count (CBC) with automated white blood cell (WBC) differential - 09/19/17 05:45 Blood leukocytes automated count (number/volume) 22.6 10*3/uL 4.3-11.0 Blood erythrocytes automated count (number/volume) 4.39 10*6/uL 4.35-5.85 Venous blood hemoglobin measurement (mass/volume) 12.5 g/dL 13.3-17.7 Blood hematocrit (volume fraction) 36 % 40-54 Automated erythrocyte mean corpuscular volume 82 [foz_us] 80-99 Automated erythrocyte mean corpuscular hemoglobin (mass per erythrocyte) 29 pg 25-34 Automated erythrocyte mean corpuscular hemoglobin concentration measurement ( mass/volume) 35 g/dL 32-36 Automated erythrocyte distribution width ratio 12.9 % 10.0-14.5 Automated blood platelet count (count/volume) 324 10*3/uL 130-400 Automated blood platelet mean volume measurement 10.1 [foz_us] 7.4-10.4 Automated blood neutrophils/100 leukocytes 86 % 42-75 Automated blood lymphocytes/100 leukocytes 6 % 12-44 Blood monocytes/100 leukocytes 8 % 0-12 Automated blood eosinophils/100 leukocytes 0 % 0-10 Automated blood basophils/100 leukocytes 0 % 0-10 Blood neutrophils automated count (number/volume) 19.4 10*3 1.8-7.8 Blood lymphocytes automated count (number/volume) 1.4 10*3 1.0-4.0 Blood monocytes automated count (number/volume) 1.7 10*3 0.0-1.0 Automated eosinophil count 0.1 10*3/uL 0.0-0.3 Automated blood basophil count (count/volume) 0.1 10*3/uL 0.0-0.1 Comprehensive metabolic panel - 09/19/17 05:45 Serum or plasma sodium measurement (moles/volume) 134 mmol/L 135-145 Serum or plasma potassium measurement (moles/volume) 3.1 mmol/L 3.6-5.0 Serum or plasma chloride measurement (moles/volume) 93 mmol/L 98-107 Carbon dioxide 28 mmol/L 21-32 Serum or plasma anion gap determination (moles/volume) 13 mmol/L 5-14 Serum or plasma urea nitrogen measurement (mass/volume) 6 mg/dL 7-18 Serum or plasma creatinine measurement (mass/volume) 0.94 mg/dL 0.60-1.30 Serum or plasma urea nitrogen/creatinine mass ratio 6 NRG Serum or plasma creatinine measurement with calculation of estimated glomerular filtration rate > NRG Serum or plasma glucose measurement (mass/volume) 126 mg/dL 70-105 Serum or plasma calcium measurement (mass/volume) 9.0 mg/dL 8.5-10.1 Serum or plasma total bilirubin measurement (mass/volume) 0.9 mg/dL 0.1-1.0 Serum or plasma alkaline phosphatase measurement (enzymatic activity/volume) 91 U/L 40-136 Serum or plasma aspartate aminotransferase measurement (enzymatic activity/ volume) 16 U/L 5-34 Serum or plasma alanine aminotransferase measurement (enzymatic activity/volume ) 22 U/L 0-55 Serum or plasma protein measurement (mass/volume) 7.4 g/dL 6.4-8.2 Serum or plasma albumin measurement (mass/volume) 3.3 g/dL 3.2-4.5 Blood manual differential performed detection - 09/19/17 05:45 Blood monocytes/100 leukocytes 3 % NRG Manual blood segmented neutrophils/100 leukocytes 82 % NRG Blood band neutrophils/100 leukocytes 6 % NRG Manual blood lymphocytes/100 leukocytes 9 % NRG Blood erythrocyte morphology finding identification NORMAL NRG Encounters ACCT No. Visit Date/Time Discharge Status Pt. Type Provider Facility Loc./Unit Complaint [id number] 09/16/2017 07:41:00 09/16/2017 09:42:00 DIS Emergency WHIT GOMEZ MD [facility] ER FLU, SHARP CP, SOB [id number] 10/23/2016 21:24:00 10/24/2016 18:41:00 DIS [facility] , LEUKOCYTOSIS, CHOLELITHIASIS [id number] 07/07/2013 09:55:00 07/07/2013 11:40:00 DIS Emergency WHIT GOMEZ MD [facility] ER CONGESTION COUGHING [id number] 03/13/2013 16:32:00 03/13/2013 18:13:00 DIS Emergency JOHN HUMPHREY DO [facility] ER R CHEEK PAIN [id number] 01/17/2013 19:57:00 01/17/2013 22:43:00 DIS Emergency MICKEY LOOMIS MD [facility] ER R SHOULDER POPING OUT OF PLACE [id number] 09/19/2017 06:10:00 Document Registration
[2017-09-19] MEDS ORDERED: guaiFENesin (MUCINEX) 600 MG TAB PO SCH (06:59)
[2017-09-19 07:00] VITALS: BP 110/61
[2017-09-19] MEDS ORDERED: BENZONATATE 100 MG (TESSALON) CAPSULE PO PRN (07:00)
[2017-09-19] MEDS ORDERED: D5 1/2 NS W/KCL 20 MEQ/L 1,000 ML IV SCH (07:00)
[2017-09-19] MEDS ORDERED: ACETAMINOPHEN 500 MG TAB (TYLENOL) PO PRN (07:00)
[2017-09-19] MEDS ORDERED: DOXYCYCLINE IV SCH ×2 (07:01)
[2017-09-19] MEDS ORDERED: DEXTROSE IV SCH ×2 (07:01)
--- NOTE | 2017-09-19 08:14 | Diagnostic Imaging Report ---
INDICATION: Shortness of breath. Comparison is made with prior examination from 09/16/2017. FINDINGS: Heart size is normal. There is right perihilar infiltrate. There is no pleural effusion or pneumothorax. The mediastinum is unremarkable. IMPRESSION: Right perihilar infiltrate suspect for early pneumonia. Recommend clinical correlation. Dictated by: Dictated on workstation # [id number]
[2017-09-19] MEDS ORDERED: INFLUENZA TRIvalent 2017-2018 0.5 ML/45 MCG SYR IM ONE (10:30)
[2017-09-19] MEDS ORDERED: DOXY100T2 PO (11:26)
[2017-09-19] MEDS ORDERED: BENZ-36 PO (11:26)
--- NOTE | 2017-09-19 11:32 | Discharge Instructions ---
Discharge [facility] Discharge Medications New, Converted or Re-Newed RX: Transmitted to Pharmacy New Medications: Doxycycline Hyclate (Doxycycline Hyclate) 100 Mg Tablet 100 MG PO BID for 7 Days, #14 TAB 0 Refills Benzonatate (Benzonatate) 100 Mg Capsule 100 MG PO TID PRN for COUGH, #30 CAP 0 Refills Patient Instructions Goal/Follow Up Appt: Follow up with Dr. Lopez on 09/26 at 140 pm. Return to The [facility] For: Fever, worsening shortness of breath, inability to keep down antibiotics. Activity & Diet Discharge Diet: Regular Diet Activity as Tolerated: Yes Copy Copies To 1: KD LOPEZ MD, BETHANY N MD Sep 19, 2017 11:32
[2017-09-19 12:00] VITALS: BP 125/66
[2017-09-19] MEDS ORDERED: methylPREDNISolone 125 MG (Solu-MEDROL) VIAL IV SCH (12:00)
[2017-09-19 13:01] VITALS: BP 125/66
--- NOTE | 2017-09-19 16:41 | Short Stay Summary ---
History of Present Illness History of Present Illness Reason for visit/HPI 32 yo male came to ER due to chest tightness and shortness of breath. He was treated presumptively for influenza earlier this week and had started to get better when he had a sudden turn for the worse, fever up to 101 and severe cough. Date of Admission Sep 19, 2017 at 6:25 am Date of Discharge Sep 19, 2017 at 1:01 pm Time Seen by Provider: 10:00 Attending Physician Kd Lopez MD Admitting Physician [place] Consult Allergies and Home Medications Allergies Coded Allergies: No Known Drug Allergies (Unverified , 01/17/13) Home Medications Benzonatate 100 Mg Capsule, 100 MG PO TID PRN for COUGH, #30 Ref 0 Prescribed by: KD LOPEZ on 09/19/17 1126 Doxycycline Hyclate 100 Mg Tablet, 100 MG PO BID for 7 Days, #14 Ref 0 Prescribed by: KD LOPEZ on 09/19/17 1126 Past Pmqtoyf-Vcvhmq-Rkfxyn Hx Patient Social History Alcohol Use: Denies Use Recreational Drug Use: No Smoking Status: Former Smoker (/2 PPD, NOW "VAPES" ) Former Smoker, Quit: Aug 29, 2016 Type Used: Cigarettes, Electronic/Vapor 2nd Hand Smoke Exposure: No Physical Abuse Screen: No Sexual Abuse: No Recent Foreign Travel: No Contact w/other who traveled: No Recent Hopitalizations: No Recent Infectious Disease Expo: No Immunizations Up To Date Tetanus Booster (TDap): Unknown Pediatric: No Seasonal Allergies Seasonal Allergies: No Surgeries Yes Gallbladder Respiratory No Cardiovascular No Neurological No Reproductive System Hx Reproductive Disorders: No Genitourinary No Gastrointestinal No Musculoskeletal No Endocrine History of Endocrine Disorders: No HEENT History of HEENT Disorders: No Cancer No Psychosocial History of Psychiatric Problem: No Integumentary History of Skin or Integumenta: No Blood Transfusions History of Blood Disorders: No Adverse Reaction to a Blood Tr: No Family Medical History Significant Family History: Heart Disease, COPD Family Hx: FH: congestive heart failure 19 FATHER Constitutional: chills, fever EENTM: No nose congestion, No throat pain Respiratory: cough, short of breath Cardiovascular: No chest pain Gastrointestinal: No abdominal pain, No constipation, diarrhea, vomiting Genitourinary: no symptoms reported Musculoskeletal: muscle pain Skin: no symptoms reported Psychiatric/Neurological: No Symptoms Reported Physical Exam Vital Signs Vital Sign - Last 12Hours 09/19/17 04:44 Temp 98.6 Pulse 85 Resp 16 B/P (MAP) 122/70 (87) Pulse Ox 97 O2 Delivery Room Air Capillary Refill : Less Than 3 Seconds General Appearance: No Apparent Distress, WD/WN Respiratory: Lungs Clear, Normal Breath Sounds Cardiovascular: Regular Rate, Rhythm, No Murmur Gastrointestinal: Normal Bowel Sounds, Non Tender, Soft Extremity: No Pedal Edema Neurologic/Psychiatric: Alert, Oriented x3 Skin: Normal Color, Warm/Dry Clinical Quality Measures DVT/VTE Risk/Contraindication: Risk Factor Score Per Nursin RFS Level Per Nursing on Admit: 1=Low/No VTE PPX Short Stay Diagnosis Discharge Diagnosis-Short Stay Admission Diagnosis: Influenza Pneumonia Final Discharge Diagnosis: Influenza- was given script for Tamiflu but could not afford, okay to not treat given he is low risk for complications and had already improved from initial flu symptoms Pneumonia- CURB65 score of 0, no sepsis criteria, no hypoxia, okay to treat outpatient given that he was able to tolerate oral breakfast and dinner with no vomiting. Discharged with course of doxycycline. Conclusion Labs Laboratory Tests 09/19/17 05:45: White Blood Count 22.6H, Red Blood Count 4.39, Hemoglobin 12.5L, Hematocrit 36L , Mean Corpuscular Volume 82, Mean Corpuscular Hemoglobin 29, Mean Corpuscular Hemoglobin Concent 35, Red Cell Distribution Width 12.9, Platelet Count 324, Mean Platelet Volume 10.1, Neutrophils (%) (Auto) 86H, Lymphocytes (%) (Auto) 6L , Monocytes (%) (Auto) 8, Eosinophils (%) (Auto) 0, Basophils (%) (Auto) 0, Neutrophils # (Auto) 19.4H, Lymphocytes # (Auto) 1.4, Monocytes # (Auto) 1.7H, Eosinophils # (Auto) 0.1, Basophils # (Auto) 0.1, Neutrophils % (Manual) 82, Lymphocytes % (Manual) 9, Monocytes % (Manual) 3, Band Neutrophils 6, Blood Morphology Comment NORMAL, Sodium Level 134L, Potassium Level 3.1L, Chloride Level 93L, Carbon Dioxide Level 28, Anion Gap 13, Blood Urea Nitrogen 6L, Creatinine 0.94, Estimat Glomerular Filtration Rate > 60, BUN/Creatinine Ratio 6 , Glucose Level 126H, Lactic Acid Level 1.53, Calcium Level 9.0, Total Bilirubin 0.9, Aspartate Amino Transf (AST/SGOT) 16, Alanine Aminotransferase ( ALT/SGPT) 22, Alkaline Phosphatase 91, Total Protein 7.4, Albumin 3.3 Conclusion/Plan See final discharge diagnosis KD LOPEZ MD Sep 19, 2017 4:41 pm
[2017-09-20] MEDS ORDERED: cefTRIAXone 1 GM/NS 50 ML IVPB IV SCH ×2 (09:00)
== END 2017-09-19 13:01 | disposition home or self-care (01) | DRG 195 ==
LOC: EDUNIT# 04:23 → ER 04:26 → 4TH 06:25
PROVIDERS: ADMIT Family Medicine; ATTEND Family Medicine
DX: J11.00 Influenza due to unidentified influenza virus with unspecified type of pneumonia (principal); F17.210 Nicotine dependence, cigarettes, uncomplicated
CPT/HCPCS: 36415; 71046; 80053; 83605; 85007; 85027; 87040; 87070; 87205; 94640; 96365; 96375